=== PATIENT | female | born 1975 | race American Indian/Alaskan Native ===

== ENCOUNTER 2018-07-23 12:09 | Emergency (ER) | payer OTHER, SELFPAY ==
[2018-07-23 12:13] VITALS: BP 137/85; PULSE 103; RESP 20; TEMP 36.8; O2SAT 97
--- NOTE | 2018-07-23 12:20 | DI.CT.S_ITS ---
PROCEDURE: CT HEAD/BRAIN WO CON INDICATIONS: unable to get correct words out, rt facial droop TECHNIQUE: Noncontrast 4.5 mm thick angled axial sections acquired from the foramen magnum to the vertex, with coronal and sagittal reformats. For radiation dose reduction, the following was used: automated exposure control, adjustment of mA and/or kV according to patient size. COMPARISON: None. FINDINGS: Image quality: Excellent. CSF spaces: Basal cisterns are patent. No extra-axial fluid collections. Blood is seen within left lateral ventricle extending to left occipital horn and possibly third ventricle. No blood is seen within the fourth ventricle. No gross hydrocephalus. Brain: There is acute intraparenchymal hemorrhage in the region of left thalamus with mild adjacent vasogenic edema and mild mass effect on the midline. No significant midline shift. Elaine-white matter interface is normal. Skull and face: Calvarium and visualized facial bones are intact, without suspicious lesions. Sinuses: Visualized sinuses and mastoids are clear. IMPRESSION: 1. Acute intra-parenchymal hematoma involving left thalamus with blood extending to left lateral ventricle and possibly third ventricle. No significant hydrocephalus. 2. Mild surrounding vasogenic edema and mild mass effect on adjacent left cerebral hemisphere. No significant midline shift. Findings were reported to Dr. Altamirano in the ER the at 12:40 PM on 07/23/18. Dictated by: Cm Scales M.D. on 07/23/2018 at 12:35 Approved by: Cm Scales M.D. on 07/23/2018 at 12:41
[2018-07-23 12:50] VITALS: BP 146/83; PULSE 98; RESP 30; O2SAT 98
[2018-07-23 13:15] VITALS: BP 148/85; PULSE 97; RESP 22
[2018-07-23 13:25] LABS: Prothrombin Time 11.8 SECONDS (10.1-12.7)
[2018-07-23 13:29] LABS: Alanine Aminotransferase 22 IU/L (9-52); Albumin 4.7 g/dL (3.5-5.0); Albumin Globulin Ratio 1.2 (1.0-2.8); Alkaline Phosphatase 75 U/L (38-126); Aspartate Aminotransferase 20 IU/L (14-36); Bilirubin Total 0.4 mg/dL (0.2-1.3); Blood Urea Nitrogen 9 mg/dL (7-17); Calcium 9.6 mg/dL (8.4-10.2); Carbon Dioxide 25 mmol/L (22-32); Chloride 101 mmol/L (98-107); Estimated Glomerular Filt Rate > 60.0 mL/min (>60); Globulin 3.8 g/dL (1.7-4.1); Glucose 267 mg/dL (70-100); HEMOLYSIS < 15 (0-50); Potassium 4.1 mmol/L (3.4-5.1); Sodium 138 mmol/L (137-145); Total Protein 8.5 g/dL (6.3-8.2)
[2018-07-23 13:34] LABS: Urine Amphetamines Negative (Negative); Urine Barbiturates Negative (Negative); Urine Benzodiazepines Negative (Negative); Urine Cocaine Negative (Negative); Urine MDMA Negative (Negative); Urine Methadone Negative (Negative); Urine Methamphetamines Negative (Negative); Urine Morphine/Opi cutoff 2000 Negative (Negative); Urine Oxycodone Negative (Negative); Urine Phencyclidine Negative (Negative); Urine Tetrahydrocannabinol Negative (Negative); Urine Tricyclic Antidepressant Negative (Negative)
[2018-07-23 13:35] LABS: Basophils Absolute Auto 100 /uL (0-100); Basophils Percent Auto 0.5 % (0-2); Eosinophils Absolute Auto 0 /uL (0-450); Hematocrit 34.2 % (36-46); Hemoglobin 10.5 g/dL (12.0-16.0); Lymphocytes Absolute Auto 1800 /uL (1100-4500); Lymphocytes Percent Auto 13.9 % (25-40); Mean Corpuscular HGB Conc 30.8 % (30-36); Mean Corpuscular Hemoglobin 22.9 PG (26-34); Mean Corpuscular Volume 74.4 fL (80-100); Monocytes Absolute Auto 600 /uL (0-900); Monocytes Percent Auto 4.8 % (3-14); Neutrophils Absolute Auto 10700 /uL (1500-7000); Neutrophils Percent Auto 80.8 % (50-75); Platelet Count 545 X10^3/uL (150-400); Red Blood Cell Count 4.59 X10^6/uL (4.0-5.2); Red Cell Distribution Width 16.1 % (11.6-14.8); White Blood Cell Count 13.2 X10^3/uL (4.5-11.0)
[2018-07-23 13:37] LABS: Add Manual Diff / Slide Review SLIDE REVIEW
[2018-07-23 13:48] VITALS: BP 156/83; PULSE 97; RESP 17; O2SAT 99
[2018-07-23 14:26] LABS: Hypochromasia 1+; Microcytosis 2+
--- NOTE | 2018-08-06 04:17 | ED.NEUROSD ---
HPI - Neuro Symptoms/Deficit General Chief Complaint: Neuro Symptoms/Deficit Stated Complaint: CANNOT TALK,SICK THIS MORNING,DIABETES Time Seen by Provider: 07/23/18 12:21 Source: patient and family Mode of arrival: ambulatory Limitations: no limitations History of Present Illness HPI Narrative: brings patient to the emergency department after she slumped over at lunch. Patient had began vomiting earlier, and stated last night that she did not feel quite right. Patient's states that now, the patient is awake, but cannot seem to make much sense of her words. No focal deficits otherwise. No recent head injury. No medications which would alter sensorium. Patient was vomiting earlier, but this has gotten better now. She has not been ill with anything recently. No fevers. No chest pain or shortness of breath. No history of CVA. On Anticoagulants: Yes (81mg) Related Data Allergies Allergy/AdvReac Type Severity Reaction Status Date / Time No Known Drug Allergies Allergy Verified 07/23/18 12:19 Review of Systems Review of Systems ROS Unobtainable: Unobtainable due to mental condition Constitutional Denies chills, Denies fever(s), Denies lethargy and Denies weakness Eyes Denies change in vision, Denies eye discharge, Denies irritation and Denies loss of vision ENT Ears, Nose, Mouth, and Throat: Denies change in voice, Denies neck pain and Denies sore throat Cardiovascular Denies chest pain, Denies irregular heart rhythm, Denies lightheadedness, Denies palpitations, Denies dyspnea, Denies dyspnea on exertion and Denies orthopnea Respiratory Denies cough, Denies dyspnea, Denies dyspnea on exertion and Denies wheezing Gastrointestinal Gastrointestinal: Denies abdominal pain, Denies change in bowel habits, Denies diarrhea, Denies nausea and Denies vomiting Genitourinary Denies hematuria, Denies flank pain, Denies urinary incontinence and Denies urinary urgency Musculoskeletal Denies neck pain Integumentary/Breasts Denies pruritus, Denies erythema, Denies rash and Denies wounds Neurologic Denies confusion, Denies loss of vision and Denies weakness Psychiatric Denies anxiety, Denies confusion, Denies depression, Denies homicidal ideation and Denies suicidal ideation Endocrine Denies palpitations Hematologic/Lymphatic Denies easy bruising Allergic/Immunologic Denies wheezing [facility] Medical History HTN (hypertension) (Acute) Diabetes (Acute) Surgical History No pertinent past surgical history (Acute) Social History Smoking Status: Never smoker Social History Smoking Status: Never smoker Exam Initial Vital Signs Initial Vital Signs: Vital Signs Temperature 98.3 F 07/23/18 12:13 Pulse Rate 103 H 07/23/18 12:13 Respiratory Rate 20 07/23/18 12:13 Blood Pressure 137/85 07/23/18 12:13 Pulse Oximetry 97 07/23/18 12:13 Const General: cooperative and well developed Nutritional Appearance: well nourished Orientation: alert, awake and not confused HENMT Head: normocephalic and atraumatic Ears: external ears normal Nose: external nose normal and No nasal discharge Face and sinus: face symmetric and No dry mucous membranes Mouth: oral mucosae normal and moist mucous membranes Teeth and gingiva: dentition normal Eyes General: appearance normal, both eyes and all related structures Eyelids: eyelids normal Conjunctivae: conjunctivae normal Sclera: sclerae normal Pupils: PERRL EOM: EOM intact bilaterally Neck Neck: normal visual inspection, trachea midline, No lymphadenopathy, No midline deformity and No JVD Lymphatic: No lymphedema Chest Chest: normal inspection of the chest Resp Effort & Inspection: normal respiratory effort, able to speak in complete sentences, no respiratory distress and no use of accessory muscles Auscultation: clear to auscultation bilaterally, no rales, no rhonchi and no wheezes Cardio Rate: regular rate Rhythm: regular rhythm Heart Sounds: no click, no gallops, no murmurs and no rubs Pulses: normal peripheral pulses GI Inspection: non-distended Palpation: soft, no hepatosplenomegaly, No guarding, No pulsatile mass and No tender Auscultation: normal bowel sounds Back/Spine/Pelvis Back: No CVA tenderness Cervical Spine: cervical ROM normal and No pain with cervical ROM Thoracic/Lumbar Spine: thoracic and lumbar spine normal to inspection Skin General: no rashes or lesions noted, No jaundice and No petechiae Neuro General: alert, awake, gait normal, no focal motor deficits and CN's II-XI intact bilaterally Speech: expressive aphasia Motor: muscle tone normal throughout and strength 5/5 throughout Sensory Exam: no sensory deficits noted Other: The patient is alert, and seems to comprehend my questions, but prepares her answers with difficulty. Additionally, the she seems to have difficulty getting the words out properly, as well as finding the word that she wants to say. Extrem General: full ROM, no clubbing, cyanosis or edema, no pedal edema and no calf tenderness Psych Appearance: well kempt Mental Status: mental status grossly normal Attitude: cooperative Thought Content: normal and suicidality Judgment: judgment good Course Course Narrative: the patient was evaluated by myself in the emergency department immediately as a code stroke. She was rushed to CT scanner, which showed a large intracranial hemorrhage. I did discuss with the patient and her that this finding is grave, and the patient needs emergent transfer to a center that has neurosurgery to handle the intracranial hemorrhage. Patient's was agreeable. Remainder of workup was unremarkable. Patient remained hemodynamically stable in the emergency department, and her mental status was also stable. [facility], who agreed to accept the patient in transfer. MDM - Neuro Symptoms/Deficit Medical Records Attestation: I reviewed the patient's medical records. Lab Data Attestation: I reviewed the patient's lab results. Result diagrams: 07/23/18 12:35 07/23/18 12:35 Lab Results 07/23/18 07/23/18 07/23/18 Range/Units 12:35 12:35 12:35 WBC 13.2 H (4.5-11.0) X10^3/uL RBC 4.59 (4.0-5.2) X10^6/uL Hgb 10.5 L (12.0-16.0) g/dL Hct 34.2 L (36-46) % MCV 74.4 L (80-100) fL MCH 22.9 L (26-34) PG MCHC 30.8 (30-36) % RDW 16.1 H (11.6-14.8) % Plt Count 545 H (150-400) X10^3/uL Neut % (Auto) 80.8 H (50-75) % Lymph % (Auto) 13.9 L (25-40) % Buchanan % (Auto) 4.8 (3-14) % Eos % (Auto) 0.0 L (2-4) % Baso % (Auto) 0.5 (0-2) % Neut # (Auto) 33406 H (3187-2073) /uL Lymph # (Auto) 1800 (4246-9355) /uL Buchanan # (Auto) 600 (0-900) /uL Eos # (Auto) 0 (0-450) /uL Baso # (Auto) 100 (0-100) /uL RBC Morphology See below Hypochromasia 1+ H Microcytosis 2+ H PT 11.8 (10.1-12.7) SECONDS INR 1.0 (0.9-1.3) Sodium 138 (137-145) mmol/L Potassium 4.1 (3.4-5.1) mmol/L Chloride 101 (98-107) mmol/L Carbon Dioxide 25 (22-32) mmol/L BUN 9 (7-17) mg/dL Creatinine 0.50 L (0.52-1.04) mg/dL Estimated GFR > 60.0 (>60) mL/min BUN/Creatinine Ratio 18.0 (6-22) Glucose 267 H (70-100) mg/dL Calcium 9.6 (8.4-10.2) mg/dL Total Bilirubin 0.4 (0.2-1.3) mg/dL AST 20 (14-36) IU/L ALT 22 (9-52) IU/L Alkaline Phosphatase 75 (38-126) U/L Total Protein 8.5 H (6.3-8.2) g/dL Albumin 4.7 (3.5-5.0) g/dL Globulin 3.8 (1.7-4.1) g/dL Albumin/Globulin Ratio 1.2 (1.0-2.8) Urine Opiates Screen (Negative) Ur Oxycodone Screen (Negative) Urine Methadone Screen (Negative) Ur Barbiturates Screen (Negative) U Tricyclic Antidepress (Negative) Ur Phencyclidine Scrn (Negative) Ur Amphetamines Screen (Negative) U Methamphetamines Scrn (Negative) Ur MDMA Scrn (Ecstasy) (Negative) U Benzodiazepines Scrn (Negative) Urine Cocaine Screen (Negative) U Marijuana (THC) Screen (Negative) 01/20/19 Range/Units 13:15 WBC (4.5-11.0) X10^3/uL RBC (4.0-5.2) X10^6/uL Hgb (12.0-16.0) g/dL Hct (36-46) % MCV (80-100) fL MCH (26-34) PG MCHC (30-36) % RDW (11.6-14.8) % Plt Count (150-400) X10^3/uL Neut % (Auto) (50-75) % Lymph % (Auto) (25-40) % Buchanan % (Auto) (3-14) % Eos % (Auto) (2-4) % Baso % (Auto) (0-2) % Neut # (Auto) (4939-2554) /uL Lymph # (Auto) (5290-2485) /uL Buchanan # (Auto) (0-900) /uL Eos # (Auto) (0-450) /uL Baso # (Auto) (0-100) /uL RBC Morphology Hypochromasia Microcytosis PT (10.1-12.7) SECONDS INR (0.9-1.3) Sodium (137-145) mmol/L Potassium (3.4-5.1) mmol/L Chloride (98-107) mmol/L Carbon Dioxide (22-32) mmol/L BUN (7-17) mg/dL Creatinine (0.52-1.04) mg/dL Estimated GFR (>60) mL/min BUN/Creatinine Ratio (6-22) Glucose (70-100) mg/dL Calcium (8.4-10.2) mg/dL Total Bilirubin (0.2-1.3) mg/dL AST (14-36) IU/L ALT (9-52) IU/L Alkaline Phosphatase (38-126) U/L Total Protein (6.3-8.2) g/dL Albumin (3.5-5.0) g/dL Globulin (1.7-4.1) g/dL Albumin/Globulin Ratio (1.0-2.8) Urine Opiates Screen Negative (Negative) Ur Oxycodone Screen Negative (Negative) Urine Methadone Screen Negative (Negative) Ur Barbiturates Screen Negative (Negative) U Tricyclic Antidepress Negative (Negative) Ur Phencyclidine Scrn Negative (Negative) Ur Amphetamines Screen Negative (Negative) U Methamphetamines Scrn Negative (Negative) Ur MDMA Scrn (Ecstasy) Negative (Negative) U Benzodiazepines Scrn Negative (Negative) Urine Cocaine Screen Negative (Negative) U Marijuana (THC) Screen Negative (Negative) Point of Care Testing Glucose POC [address] scan - head: Radiologist's impression: ROCEDURE: CT HEAD/BRAIN WO CON INDICATIONS: unable to get correct words out, rt facial droop TECHNIQUE: Noncontrast 4.5 mm thick angled axial sections acquired from the foramen magnum to the vertex, with coronal and sagittal reformats. For radiation dose reduction, the following was used: automated exposure control, adjustment of mA and/or kV according to patient size. COMPARISON: None. FINDINGS: Image quality: Excellent. CSF spaces: Basal cisterns are patent. No extra-axial fluid collections. Blood is seen within left lateral ventricle extending to left occipital horn and possibly third ventricle. No blood is seen within the fourth ventricle. No gross hydrocephalus. Brain: There is acute intraparenchymal hemorrhage in the region of left thalamus with mild adjacent vasogenic edema and mild mass effect on the midline. No significant midline shift. Elaine-white matter interface is normal. Skull and face: Calvarium and visualized facial bones are intact, without suspicious lesions. Sinuses: Visualized sinuses and mastoids are clear. IMPRESSION: 1. Acute intra-parenchymal hematoma involving left thalamus with blood extending to left lateral ventricle and possibly third ventricle. No significant hydrocephalus. 2. Mild surrounding vasogenic edema and mild mass effect on adjacent left cerebral hemisphere. No significant midline shift. Findings were reported to Dr. Altamirano in the ER the at 12:40 PM on 07/23/18. Dictated by: Cm Scales M.D. on 07/23/2018 at 12:35 Approved by: Cm Scales M.D. on 07/23/2018 at 12:41 Critical Care Time Critical Care Time: Yes Total Critical Care Time: 60 Attestation: Critical care was necessary to treat or prevent imminent or life-threatening deterioration of the following conditions: Intracranial hemorrhage with acute neurologic compromise. Critical care time was spent personally by me on the following activities: Development of a treatment plan with patient or surrogate, discussions with consultants, evaluation of the patient's response to treatment, examination of the patient, interpretation of cardiac output measurements, obtaining history from patient or surrogate, ordering and performing treatments and interventions, ordering and review of laboratory studies, ordering and review of radiographic studies, re-evaluation of the patient's condition, pulse oximetry, and review of old charts. Critical care time is independent of any separately billable procedures. Discharge Plan Departure Patient Disposition: [facility] Clinical Impression: Nontraumatic thalamic hemorrhage Discharge Date/Time: 07/23/18 14:00 Interventions: ED Discharge Assessment Last Done: 07/23/18 14:18
== END 2018-07-23 14:00 | disposition short-term general hospital (02) ==
PROVIDERS: Emergency Provider Emergency Medicine
DX: R58 Hemorrhage, not elsewhere classified (principal); R29.810 Facial weakness
CPT/HCPCS: 36591; 70450; 80053; 80305; 82962; 85025; 85610; 93005; 99283; 99284; 99291